=== PATIENT | female | born 1995 | race Caucasian/White ===

== ENCOUNTER 2021-07-04 15:38 | Emergency (ER) | payer MEDICAID ==
[~2021-07-04] VITALS: Ht 154.9 cm; Wt 95.3 kg
[2021-07-04] MEDS ORDERED: FLUO20CA42 PO (15:48)
[2021-07-04] MEDS ORDERED: LORA-259 PO (15:48)
[2021-07-04] MEDS ORDERED: LEVO125T8 PO (15:48)
[2021-07-04] MEDS ORDERED: HYDR-501 PO (15:48)
[2021-07-04] MEDS ORDERED: LORAZEPAM 0.5 MG TABLET PO ONE (16:30)
[2021-07-04 17:25] VITALS: BP 132/78
--- NOTE | 2021-07-04 17:25 | NUR ---
PT WAS EVALUATED BY DR LEWIS. PT WAS D/C'd TO HOME. D/C INSTRUCTIONS GIVEN TO THE PT BY DR LEWIS.
== END 2021-07-04 17:26 | disposition home or self-care (01) ==
LOC: ER 15:45
DX: F41.9 Anxiety disorder, unspecified (principal); F32.A Depression, unspecified; E03.9 Hypothyroidism, unspecified; Z79.890 Hormone replacement therapy
CPT/HCPCS: A4663